=== PATIENT | female | born 2000 | race Two or more races ===

== ENCOUNTER 2023-02-27 18:59 | Emergency (ER) | payer OTHER, SELFPAY ==
--- NOTE | ~2023-02-27 | CT_ITS ---
EXAMINATION: CT head/brain wo IV con CLINICAL INFORMATION: Reason for Exam headache COMPARISON: None. TECHNIQUE: Contiguous axial imaging was performed from the skull base to vertex without intravenous contrast. Sagittal and coronal reformatted images were obtained. This CT examination was performed using dose optimization techniques as appropriate, variously including the following: * Automated exposure control * Adjustment of mA and/or kV according to patient size (this includes techniques or standardized protocols for targeted exams where dose is matched to indication/reason for exam; i.e. extremities or head) Use of iterative reconstruction technique DLP: 735.46 mGy-cm FINDINGS: No acute osseous or soft tissue abnormality. The mastoid air cells and visualized portions of the paranasal sinuses are well aerated. Left-sided scleral band in place. There is no evidence of acute intracranial hemorrhage or territorial infarction. No abnormal mass effect or midline shift is seen. Adams to white matter differentiation is well preserved. No extra-axial fluid collections are identified. No hydrocephalus. No significant volume loss. There is no abnormal attenuation within the brain parenchyma. CT/CT head/brain wo IV con IMPRESSION: No acute intracranial abnormality including hemorrhage, mass effect, hydrocephalus, or acute territorial edematous infarction.
[2023-02-27 19:30] VITALS: BP 133/81; PULSE 74; RESP 16; TEMP 36.4; O2SAT 99; BMI 38.9
--- NOTE | 2023-02-27 19:30 | ED_ITS ---
HPI - General Adult General Chief complaint: Headache Stated complaint: sent from pressure in head Time Seen by Provider: 02/27/23 21:58 Source: patient Mode of arrival: ambulatory Limitations: no limitations History of Present Illness HPI narrative: 23-year-old female presents with right-sided headache. right sided Does not radiate No clear relieving or eacerbating features Started 2-3 days ago Electric shocks Related Data Allergies Allergy/AdvReac Type Severity Reaction Status Date / Time latex Allergy Rash Verified 02/27/23 19:30 Review of Systems Review of Systems: CONSTITUTIONAL: Denies weight loss, fever and chills. HEENT: Denies changes in vision and hearing. RESPIRATORY: Denies SOB and cough. CV: Denies palpitations no CP. GI: Denies abdominal pain, nausea, vomiting and diarrhea. : Denies dysuria and urinary frequency. MSK: Denies myalgia and joint pain. SKIN: Denies rash and pruritus. NEUROLOGICAL: + headache - syncope. PSYCHIATRIC: Denies recent changes in mood. Denies anxiety and depression. All other ROS are negative unless [facility] Social History Social History Advance Directives: No Advance Directives Information Provided: Yes Physical Exam ED Vital Signs: Vital Signs - 24 hr 02/27/23 19:30 Temperature 97.6 F Pulse Rate 74 Respiratory Rate 16 Blood Pressure 133/81 Pulse Oximetry 99 Oxygen Delivery Method Room Air BMI result Body Mass Index 38.9 GEN: Well developed, no acute distress, alert, oriented HEENT: Normocephalic, atraumatic, normal external ears, nose appears normal Eyes: Normal to appearance Neck: Supple, no lymphadenopathy Respiratory: Talks in complete sentences, no respiratory distress Extremities: No clubbing cyanosis or edema Neurologic: No focal neurologic deficits, cranial nerves 2-12 intact, gait normal Skin: No rash Course Course Course Narrative: This is an RME: Additional HPI, ROS, PE not included below will be deferred to primary provider. This is a [id number]-female, with a past medical history of right eye cataract and GERD, presenting to the emergency department with a complaint of head pressure since yesterday. Patient states that since yesterday she has had 4 episodes of sharp pressure in her posterior head that last several seconds. She states that she had one episode of sharp pain today. She went to an urgent care today and was told to come to the ER for a head CT. No recent fevers, chills, nausea, vomiting, or diarrhea. TTP to cervical paraspinous muscles. Plan: CT head ordered Reevaluation(s) Reevaluation #1: ct negative. pain free d/c home Time: 22:20 Medical Decision Making Medical Decision Making MDM Narrative: The Pt presents with a gradual onset headache, _ that I believe is due to a benign generalized headache, and DDx includes tension vs migraine. Given the time course of pain and the Pt?s reassuring exam, I have much lower suspicion for a more emergent etiology including intracranial bleed, stroke, acute SOLAR APPLICATIONS DEVELOPMENT ENGINEER infxn, venous sinus thrombosis, temporal arteritis, or acute angle glaucoma. However, will CT given _ to assess for a bleed or mass. Will provide basic analgesia with frequent reassessment. Differential Diagnosis Differential Diagnoses: The differential diagnosis associated with the presentation includes (see above) Admission/Observation Consideration of admission/observation: Escalation of care including admission/observation considered Independent Interpretation I performed an independent interpretation of an: CT Scan (head NAD) Radiology Impression Discussion of test interpretation with radiology: I have reviewed the radiologist's reading. Radiologist Impression: CT/CT head/brain wo IV con IMPRESSION: No acute intracranial abnormality including hemorrhage, mass effect, hydrocephalus, or acute territorial edematous infarction. Dictated By:Monica Reynoldsigned By:<Electronically signed by Ignacio Reynolds in OV>02/27/232013 Prescription Management I considered prescription management with: Pain Medication Discharge Plan Discharge Clinical Impression: Headache Patient Disposition: Home, Self-Care Instructions: Acute Headache (ED) Additional Instructions: If headache returns: Tylenol 1000 mg x 1 Ibuprofen 600 mg x 1 Referrals: Physician,Unknown J [Primary Care Provider] - (PMD if needed)
--- NOTE | 2023-02-27 20:11 | PC.NURSE ---
pt states her headache has resolved. skin pink warm and dry. no s/s of distress pt placed in emc 4. steady gait. talking in full sentences.
--- NOTE | 2023-02-27 21:45 | PC.NURSE ---
pt in bed # 4 ,denied pain now, stated that the pressure and shock to the right side of the head she had since yesterday few times that's she was concerned about
[2023-02-27 22:24] VITALS: BP 125/61; PULSE 75; O2SAT 98
== END 2023-02-27 22:33 | disposition home or self-care (01) ==
PROVIDERS: Emergency Provider Emergency Medicine
DX: R51.9 Headache, unspecified (principal)
CPT/HCPCS: 70450; 99283; 99284

== ENCOUNTER 2025-03-10 10:54 | Emergency (ER) | payer BC, SELFPAY ==
--- NOTE | 2025-03-10 11:18 | ED_ITS ---
HPI - General Adult General Chief complaint: Headache Stated complaint: Severe migraine and body feels numb Related Data Allergies Allergy/AdvReac Type Severity Reaction Status Date / Time latex Allergy Rash Verified 03/10/25 11:20 COUNTS INCLUDE 234 BEDS AT THE [facility] Social History Social History Advance Directives: No Advance Directives Information Provided: No Physical Exam ED Vital Signs: Vital Signs - 24 hr 03/10/25 11:19 Temperature 98.0 F Pulse Rate 75 Respiratory Rate 18 Blood Pressure 161/71 H Pulse Oximetry 98 Oxygen Delivery Method Room Air BMI result Body Mass Index 43.1 Course Course Course Narrative: Rapid medical examination performed in triage by Tamra Retana PA-C. Patient is a 25 year old assigned female at presenting to the emergency department with a headache and body numbness. Detailed physical exam and review of systems are deferred to the armor reconnaissance specialist. EKG, labs, and swabs ordered. Patient placed back in the waiting room pending room availability and results. Patient left the department without completing treatment. Patient's limited physical exam performed in triage showed a non-toxic individual, able to self ambulate without assistance, alert and oriented, able to speak in complete sentences. Patient left the department before myself or any of the other emergency department clinicians could review or explain results or a treatment plan. Medical Decision Making Lab Data 03/10/25 11:34 03/10/25 11:34 Labs: Lab Results 03/10/25 Range/Units 11:34 WBC 9.0 (4.8-10.8) X10*3/uL RBC 4.65 (4.20-5.50) X10*6/uL Hgb 13.2 (12.0-16.0) g/dl Hct 38.4 (37.0-47.0) % MCV 82.6 (80.0-98.0) fL MCH 28.4 (27.0-33.0) pg MCHC 34.4 (31.0-35.0) g/dl RDW 13.7 (11.0-16.0) % Plt Count 288 (160-400) X10*3/uL MPV 9.8 (9.4-12.3) fL Immature Gran % (Auto) 0.1 (0.0-0.4) % Neut % (Auto) 57.7 (45-73) % Lymph % (Auto) 27.2 (20-40) % [place] % (Auto) 7.6 (2-11) % Eos % (Auto) 6.7 H (0-4) % Baso % (Auto) 0.7 (0-2) % Lymph # (Auto) 2.5 (1.2-4.9) X10*3/uL [place] # (Auto) 0.7 (0.1-1.2) X10*3/uL Eos # (Auto) 0.6 H (0.0-0.4) X10*3/uL Baso # (Auto) 0.1 (0.0-0.2) X10*3/uL Abs Immat Gran (auto) 0.01 (0.00-0.03) X10*3/uL Absolute Neuts (auto) 5.2 (2.0-8.3) x10*3/uL Absolute Nucleated RBC 0.000 (0.0-0.012) X10*3/uL Nucleated RBC % (auto) 0.0 (0.0-0.2) /100WBC PT 12.1 (10.9-12.4) SEC INR 1.1 (0.9-1.1) Sodium 141 (135-145) mmol/L Potassium 3.7 (3.3-5.1) mmol/L Chloride 108 (96-108) mmol/L Carbon Dioxide 23 (22-29) mmol/L Anion Gap 14 (12-20) BUN 10 (9-16) mg/dL Creatinine 0.80 (0.5-1.4) mg/dL Estim Creat Clear Calc 141.3 Estimated GFR > 60 Random Glucose 84 (60-115) mg/dL Calcium 9.2 (8.4-10.2) mg/dL Magnesium 1.9 (1.6-2.6) mg/dL Total Bilirubin 0.6 (0.0-1.0) mg/dL AST 27 (5-31) U/L ALT 39 H (0-31) U/L Alkaline Phosphatase 83 (39-117) U/L Troponin I High Sens < 2.7 (<3.5-17.0) ng/L Total Protein 7.5 (6.5-8.0) g/dL Albumin 4.4 (3.5-5.0) g/dL COVID-19 (FRANCINE) Negative (Negative) COVID-19 Clin Com See Note Influenza Type A (KADIE) Negative (Negative) Influenza Type B (KADIE) Negative (Negative) Influenza A & B Note See Note Discharge Plan Discharge Clinical Impression: Headache Patient Disposition: Left W/O Completing Treatment Discharge Date/Time: 03/10/25 16:20
[2025-03-10 11:19] VITALS: BP 161/71; PULSE 75; RESP 18; TEMP 36.7; O2SAT 98; BMI 43.1
--- NOTE | 2025-03-10 11:21 | ECG_ITS ---
Test Reason : WEAKNES/ DIZZIESS Blood Pressure : */* mmHG Vent. Rate : 75 BPM Atrial Rate : 75 BPM P-R Int : 154 ms QRS Dur : 84 ms QT Int : 394 ms P-R-T Axes : 34 60 -2 degrees QTcB Int : 439 ms Normal sinus rhythm Nonspecific T wave abnormality Abnormal ECG No previous ECGs available Referred By: Tamra Retana Electronically Signed By: STEPHANIE OSUNA MD
[2025-03-10 11:41] LABS: Hematocrit 38.4 % (37.0-47.0); Hemoglobin 13.2 g/dl (12.0-16.0); Imm Gran Abs Auto 0.01 X10*3/uL (0.00-0.03); Imm Gran Pct Auto 0.1 % (0.0-0.4); Lymphocytes Absolute Auto 2.5 X10*3/uL (1.2-4.9); MANUAL DIFF FLAG NO; Mean Corpuscular HGB Conc 34.4 g/dl (31.0-35.0); Mean Corpuscular Hemoglobin 28.4 pg (27.0-33.0); Mean Corpuscular Volume 82.6 fL (80.0-98.0); NRBC Abs Auto 0.000 X10*3/uL (0.0-0.012); NRBC Pct Auto 0.0 /100WBC (0.0-0.2); Platelet Count 288 X10*3/uL (160-400); Red Blood Count 4.65 X10*6/uL (4.20-5.50); White Blood Count 9.0 X10*3/uL (4.8-10.8)
[2025-03-10 11:53] LABS: INTERNATIONAL NORM RATIO 1.1 (0.9-1.1); Prothrombin Time 12.1 SEC (10.9-12.4)
[2025-03-10 12:02] LABS: COVID-19 Test Negative (Negative); IDNOW Serial# 55D5AD1C; IDNOW Serial# 58CA691E; Influenza B2 Negative (Negative)
[2025-03-10 12:07] LABS: Alanine Aminotransferase 39 U/L (0-31); Albumin Level 4.4 g/dL (3.5-5.0); Alkaline Phosphatase 83 U/L (39-117); Anion Gap 14 (12-20); Aspartate Amino Transferase 27 U/L (5-31); Blood Urea Nitrogen 10 mg/dL (9-16); Calcium 9.2 mg/dL (8.4-10.2); Carbon Dioxide 23 mmol/L (22-29); Chloride 108 mmol/L (96-108); Creatinine Clr Calc Pharmacy 141.3; Estimated Glomerular Filt Rate > 60; Magnesium 1.9 mg/dL (1.6-2.6); Potassium 3.7 mmol/L (3.3-5.1); Sodium 141 mmol/L (135-145); Total Protein 7.5 g/dL (6.5-8.0)
[2025-03-10 12:18] LABS: Troponin-I High Sensitivity < 2.7 ng/L (<3.5-17.0)
--- OUTSIDE RECORDS SUMMARY | 2025-03-10 14:06 | XMS_ITS | Clinical Summary ---
Author Organization [facility] it[facility] Address [address] [place] [address] Care Team Providers Care Client Technologies Analyst Name Role Phone Unavailable Primary Care Provider Unavailabl e Social History Tobacco Use Types Packs/Day Years Used Date Smoking Tobacco: Never Assessed Comments Unknown Sex and Gender Information Value Date Recorded Sex Assigned at Not on file Legal Sex Female 12:38 AM EST Gender Identity Not on file Sexual Orientation Not on file Plan of Treatment Health Maintenance Due Date Last Done Comments HPV Vaccines (1 - 3-dose series) 2014 DTaP,Tdap,and Td Vaccines (1 - Tdap) 2018 Hepatitis B Vaccines (1 of 3 - 19+ 3-dose series) 2018 Cervical Cancer Screening: P ap Smear 02/24/2020 Depression Screening 06/29/2024 COVID-19 Vaccine ( - 2023-2 5 season) 2025 Influenza Vaccine (#1) 2025 HIB Vaccines Aged Out No longer eligi ble based on patient's age to complete this topic Hepatitis A Vaccines Aged Out No long er eligible based on patient's age to complete this topic IPV Vaccines Aged Out No longer eligi ble based on patient's age to complete this topic MMR Vaccines Aged Out No longer eligi ble based on patient's age to complete this topic Meningococcal ACWY Vaccine Aged Out N o longer eligible based on patient's age to complete this topic Meningococcal B Vaccine Aged Out No l onger eligible based on patient's age to complete this topic Pneumococcal Vaccine: Pediat rics (0 to 5 Years) and At-Risk Patients (6 to 49 Years) Aged Out No longer eligible b ased on patient's age to complete this topic RSV Immunization Patients Un erica 20 months Aged Out No longer eligible b ased on patient's age to complete this topic Varicella Vaccines Aged Out No longer eligible based on patient's age to complete this topic
--- OUTSIDE RECORDS SUMMARY | 2025-03-10 14:06 | XMS_ITS | Clinical Summary ---
Author Organization [facility] Address [address] [place] [address] Care Team Providers Care Compensation Consultant Name Role Phone Gloria Colon Primary Care Provider [phone] Allergies Active Allergy Reactions Criticality Noted Date Comments Latex Rash 07/18/2020 Never been tested, but sensitive to latex gloves Medications No known medications Social History Tobacco Use Types Packs/Day Years Used Date Smoking Tobacco: Never Smokeless Tobacco: Never Alcohol Use Standard Drinks/Week Comments Never 0 (1 standard drink = 0.6 oz pur e alcohol) Comments No Sex and Gender Information Value Date Recorded Sex Assigned at Not on file Legal Sex Female 10:48 AM EDT Gender Identity Not on file Sexual Orientation Not on file Last Filed Vital Signs Vital Sign Reading Time Taken Comments Blood Pressure 129/66 07/25/2020 3:45 PM EST Pulse 91 07/25/2020 3:45 PM EST Temperature 36.8 C (98.2 F) 07/25/2020 3:45 PM EST Respiratory Rate 16 07/25/2020 3:45 PM EST Oxygen Saturation 100% 07/25/2020 3:45 PM EST Inhaled Oxygen Concentration - - Weight 99.8 kg (220 lb) 07/18/2020 10:16 AM EST Height 167.6 cm (5' 6 ) 07/18/2020 10:16 AM EST Body Mass Index 35.51 07/18/2020 10:16 AM EST Plan of Treatment Health Maintenance Due Date Last Done Comments HIV Screening 1999 Varicella Vaccines (1 of 2 - 13+ 2-dose series) 02/24/2012 HPV Vaccines (1 - 3-dose series) 2014 Hepatitis B Vaccines (1 of 3 - 19+ 3-dose series) 2018 DTaP,Tdap,and Td Vaccines (1 - Tdap) 2021 Alcohol/Substance Use Screening 06/29/2024 COVID-19 Vaccine (1 - 2023-2 5 season) 2025 Influenza Vaccine (#1) 2025 RSV Vaccine (60+ years old a nd patients) (1 - 1-dose 75+ series) 2074 Pneumococcal Vaccine: Pediat alexis (0-5 Years) and At-Risk Patients (6-50 Years) Aged Out No longer eligible b ased on patient's age to complete this topic Insurance [facility] MEDICAID Care Teams Compensation Consultant Relationship Specialty Start Date End Date Gloria Colon [address] [place] [address] PCP - General 07/12/20
== END 2025-03-10 16:20 | disposition left against medical advice (07) ==
PROVIDERS: Physician Assistant Medical; Emergency Provider Emergency Medicine; PCP Internal Medicine
DX: G43.909 Migraine, unspecified, not intractable, without status migrainosus (principal); R20.0 Anesthesia of skin; Z11.52 Encounter for screening for COVID-19; Z03.818 Encounter for observation for suspected exposure to other biological agents ruled out; Z79.899 Other long term (current) drug therapy
CPT/HCPCS: 80053; 83735; 84484; 85025; 85610; 87502; 87635; 93005; 99283

== ENCOUNTER → 2025-03-10 11:21 | Outpatient (BNV) | payer BC, SELFPAY | PROVIDERS: PCP Internal Medicine; Visit Provider Internal Medicine Cardiovascular Disease | DX: R94.31 Abnormal electrocardiogram [ECG] [EKG] (principal); R53.1 Weakness; R42 Dizziness and giddiness | CPT/HCPCS: 93010 ==